=== PATIENT | male | born 1965 | race Caucasian/White ===

== ENCOUNTER 2025-02-04 09:41 | Outpatient (CLI) | payer OTHER ==
[~2025-02-04 09:41] MED LIST: TAMS-55 PO
--- NOTE | 2025-02-04 11:46 | RADIOLOGY REPORT ---
CLINICAL HISTORY: ABDOMINAL HERNIA, HERNIA, UMBILICAL TECHNIQUE: Sonographic imaging of the anterior abdominal wall was performed. COMPARISON: None FINDINGS: In the area of clinical concern in the umbilical region, there is a probable small fat containing umbilical hernia. The neck of the hernia measures 1.6 cm. IMPRESSION: Small fat containing umbilical hernia.
== END 2025-02-04 23:59 | disposition home or self-care (01) ==
LOC: RAD 09:41
PROVIDERS: ATTEND Student in an Organized Health Care Education/Training Program
DX: K42.9 Umbilical hernia without obstruction or gangrene (principal); K46.9 Unspecified abdominal hernia without obstruction or gangrene
CPT/HCPCS: 76705